=== PATIENT | male | born 1930 | race Caucasian/White ===

== ENCOUNTER 2016-09-13 12:28 | Emergency (ER) | payer OTHER, MEDICARE, BC ==
[~2016-09-13] VITALS: Ht 182.9 cm; Wt 95.0 kg
[~2016-09-13 12:28] MED LIST: AMBI5TAB PO; ASPI81 PO; BRIM.2%O RIGHT EYE; COMBAER INH; HYDR-2768 PO; MEDR4PAK3 PO; OMEP20CA5 PO; POLY99.0 OU; PROS5TAB2 PO; TAB-TAB PO; TERA10CA3 PO; TRAV0.00 BOTH EYES
[2016-09-13 12:35] VITALS: BP 138/78; PULSE 84; RESP 18; TEMP 97.7; O2SAT 95
--- NOTE | 2016-09-13 13:18 | PD ---
HPI Chief Complaint: Fall Time Seen by Provider: 12:44 Travel History International Travel<30 days: No Contact w/Intl Traveler<30days: No Traveled to known affect area: No History of Present Illness HPI So well 86-year-old man who presents to the emergency department after he fell backwards off a stepladder yesterday. States he was doing something in his bedroom on the TV when he fell backward sort of bounced off the bed and landed on his right hip right chest and right flank. He also had pain in his right knee and his right elbow. He cut his right elbow. He doesn't think he had any LOC but he does have some headache now. Most of his pain is in his right hip, head, right rib cage. History Past Medical History Narrative Medical History of lung CA Asbestosis BPH COPD Social History Alcohol Use: Yes (1 DAILY) Tobacco Use: No (quit 28 yrs ago) Allergies-Medications (Allergen,Severity, Reaction): Coded Allergies: No Known Allergies (Verified , 09/13/16) Reported Meds & Prescriptions Reported Meds & Active Scripts Active No Active Prescriptions or Reported Medications Review of Systems Except as stated in HPI: all other systems reviewed are Neg Physical Exam Narrative GENERAL: Well-appearing 86-year-old man, no acute distress. SKIN: Warm and dry. HEAD: Atraumatic. Normocephalic. NECK: Trachea midline. No JVD. No midline tenderness. Full painless range of motion. CARDIOVASCULAR: Regular rate and rhythm. No murmur appreciated. RESPIRATORY: No accessory muscle use. Clear to auscultation. Breath sounds equal bilaterally. GASTROINTESTINAL: Abdomen soft, non-tender, nondistended. Hepatic and splenic margins not palpable. MUSCULOSKELETAL: No obvious deformities. There is a small approximately 2 mm laceration over the olecranon. Into the soft tissues. He is full range of motion of the right upper extremity. Is a little tenderness right at the site of the cut but he is no pain on the olecranon of the elbow itself. Shoulders unremarkable. He has some pain and tenderness in the right flank with compression of the rib cage. There is no obvious ecchymosis bruising or swelling in the area. He has some pain in the right hip. He still be able to range it pretty well. Right knee is unremarkable. NEUROLOGICAL: Awake and alert. No obvious cranial nerve deficits. Motor grossly within normal limits. Normal speech. PSYCHIATRIC: Appropriate mood and affect; insight and judgment normal. Data Data Last Documented VS Vital Signs Date Time Temp Pulse Resp B/P Pulse Ox O2 Delivery O2 Flow Rate FiO2 09/13/16 12:35 97.7 84 18 138/78 95 Orders Ribs, Uni (W/Exp Cxr-Min 3vw) (09/13/16 ) Ct Brain W/O Iv Contrast(Rout) (09/13/16 ) Hip, Uni(Ap&Lat) W Ap Pelvis (09/13/16 ) Elbow, Complete (4 Vws) (09/13/16 ) [facility] Medical Decision Making Medical Screen Exam Complete: Yes Emergency Medical Condition: Yes Interpretation(s) X-ray right hip: Negative. X-ray right ribs: Negative. Right elbow x-ray: Negative. CT head negative. Differential Diagnosis Head injury, rib cage injury, elbow injury, other Narrative Course Medical decision making 86-year-old male presents emergency department after a fall from a ladder yesterday. He has small cut on his right elbow. Given that it happened yesterday we will repair with Steri-Strips. It looks pretty clean and small. We'll check a CT of his head. We'll also check x-rays of his right ribs, right elbow, and right hip. Likely negative. Procedures Procedure Narrative Laceration repair: Right elbow laceration was cleansed with sterile gauze and sterile saline. Benzoin was applied to the outside wound. Steri-Strips were applied. Bandage was placed. Diagnosis Primary Impression: Fall Qualified Code: W19.XXXA - Fall, initial encounter Additional Impressions: Right flank pain Elbow laceration Qualified Code: S51.011A - Elbow laceration, right, initial encounter Additional Instructions: Use acetaminophen or ibuprofen as needed for pain. Follow-up with your primary Dr. campos felt completely well in 7-10 days. Return to the emergency department for any worsening headache, chest pain, trouble breathing, or any other new or worsening symptoms. Med/Other Pt SpecificInfo: No Change to Meds Scripts No Active Prescriptions or Reported Meds Disposition: 01 DISCHARGE HOME Condition: Stable Akira Tariq MD Sep 13, 2016 13:18
--- NOTE | 2016-09-13 13:46 | RADHPO ---
EXAM DATE/TIME: 09/13/2016 13:13 [facility] COMPARISON: No previous studies available for comparison. INDICATIONS : Right hip pain after fall. MEDICAL HISTORY : None. SURGICAL HISTORY : None. ENCOUNTER: Initial ACUITY: 2 days PAIN SCORE: 5/10 LOCATION: Right lateral hip FINDINGS: Examination of the right hip was performed with AP Pelvis. The primary and secondary trabecular dayday collin of the femoral neck is intact. The hip joint is of normal width without significant sclerosis or bony hypertrophy. The acetabulum is grossly intact. Degenerative changes and scoliosis of the lumba r spine are noted. Mild degenerative changes are noted involving hip joints bilaterally. CONCLUSION: 1. No acute fracture or dislocation of the right hip. 2. Degenerative changes and scoliosis of the lumbar spine. 3. Mild degenerative changes involving the hips. Moreno Sun MD on September 13, 2016 at 13:44 Board Certified Radiologist. This report was verified electronically.
--- NOTE | 2016-09-13 13:49 | RADHPO ---
EXAM DATE/TIME: 09/13/2016 13:06 [facility] COMPARISON: No previous studies available for comparison. INDICATIONS: Right elbow pain after fall. MEDICAL HISTORY: None. SURGICAL HISTORY: None. 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 There is no acute fracture or disl ocation of the right elbow. No elbow joint effusion is noted. CONCLUSION: 1. 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 2. No acute fracture, dislocation or elbow joint effusion. Moreno Sun MD on September 13, 2016 at 13:40 Board Certified Radiologist. This report was verified electronically.
--- NOTE | 2016-09-13 13:52 | RADHPO ---
EXAM DATE/TIME: 09/13/2016 13:07 [facility] COMPARISON: No previous studies available for comparison. INDICATIONS: Right side rib pain after fall. MEDICAL HISTORY: None. SURGICAL HISTORY: Lobectomy. ENCOUNTER: Initial ACUITY: 2 days PAIN SCORE: 1/10 LOCATION: Right upper chest FINDINGS: There is no acute fracture or dislocation of the right ribs. Granulomatous changes are noted bilater ally. Degenerative changes and scoliosis of the thoracolumbar spine are noted. CONCLUSION: 1. No fracture or dislocation of the right ribs. 2. Granulomatous changes within the lungs bilaterally. 3. Degenerative changes and scoliosis of the thoracolumbar spine. Moreno Sun MD on September 13, 2016 at 13:42 Board Certified Radiologist. This report was verified electronically.
--- NOTE | 2016-09-13 15:40 | RADHPO ---
EXAM DATE/TIME: 09/13/2016 14:53 [facility] COMPARISON: No previous studies available for comparison. INDICATIONS : Fell last night. RADIATION DOSE: 49.29 CTDIvol (mGy) MEDICAL HISTORY : Chronic obstructive pulmonary disease. Carcinoma, lung. SURGICAL HISTORY : Umbilical hernia repair. Inguinal hernia repair.Right upper lobectomy. ENCOUNTER: Initial ACUITY: 2 days PAIN SCALE: 3/10 LOCATION: cranial TECHNIQUE: Multiple contiguous axial images were obtained of the head. Using automated exposure control and adj ustment of the mA and/or kV according to patient size, radiation dose was kept as low as reasonably a chievable to obtain optimal diagnostic quality images. FINDINGS: CEREBRUM: The ventricles are normal for age. No evidence of midline shift, mass lesion, hemorrhage or acute in farction. No extra-axial fluid collections are seen. POSTERIOR FOSSA: The cerebellum and brainstem are intact. The 4th ventricle is midline. The cerebellopontine angle i s unremarkable. EXTRACRANIAL: The visualized portion of the orbits is intact. SKULL: The calvaria is intact. No evidence of skull fracture. CONCLUSION: 1. No acute intercranial abnormality identified. Govind Rios MD on September 13, 2016 at 15:37 Board Certified Radiologist. This report was verified electronically.
[2016-09-13 16:22] VITALS: BP 142/63
== END 2016-09-13 16:24 | disposition home or self-care (01) ==
LOC: PHED 12:28
DX: S51.011A Laceration without foreign body of right elbow, initial encounter (principal); R51 Headache; M25.561 Pain in right knee; J61 Pneumoconiosis due to asbestos and other mineral fibers; W11.XXXA Fall on and from ladder, initial encounter; Y93.89 Activity, other specified; Y92.003 Bedroom of unspecified non-institutional (private) residence as the place of occurrence of the external cause; Y99.9 Unspecified external cause status; R10.11 Right upper quadrant pain
CPT/HCPCS: 70450; 71101; 73080; 73502